=== PATIENT | male | born 1965 | race Caucasian/White ===

== ENCOUNTER 2019-07-12 15:29 | Emergency (ER) | payer MEDICARE, SELFPAY ==
[2019-07-12 15:31] VITALS: BP 144/94; PULSE 77; RESP 18; TEMP 37; O2SAT 97; BMI 32.7
--- NOTE | 2019-07-12 15:44 | CT_ITS ---
STUDY: CT BRAIN WITHOUT CONTRAST REASON FOR EXAM: Male, 54 years old. Trauma RADIATION DOSAGE (If Supplied By Facility): CTDIvol = ( 44.99 ) mGy, DLP = ( 812.98 ) mGycm TECHNIQUE: Transaxial CT imaging of the brain was performed without administration of intravenous contrast material. Individualized dose optimization techniques were used for this CT. COMPARISON: No relevant priors. FINDINGS: Normal soft tissue structures. Normal calvarium. Normal size ventricles and extra-axial spaces for the patient's age. Normal white matter tracts of the cerebral hemispheres. Normal basal ganglia and thalami. Normal brainstem. Normal cerebellum. There is no intracranial hemorrhage. There are no findings of an acute ischemic infarction. Normal visualized paranasal sinuses. CT/Brain/Head without Contrast IMPRESSION: Normal unenhanced CT scan of the brain. Electronically Signed: Evgeny Pickett MD at 16:49 EDT , Service support ,
--- NOTE | 2019-07-12 15:47 | CT_ITS ---
STUDY: CT CERVICAL SPINE WITHOUT CONTRAST REASON FOR EXAM: Male, 54 years old. Trauma RADIATION DOSAGE (If Supplied By Facility): CTDIvol = ( 27.40 ) mGy, DLP = ( 559.34 ) mGycm TECHNIQUE: High resolution transaxial imaging was performed without contrast material. Sagittal and coronal images were reconstructed. Individualized dose optimization techniques were used for this CT. COMPARISON: None FINDINGS: Normal craniovertebral junction. There are degenerative changes of the anterior atlantoaxial articulation. Normal odontoid process. There is straightening of the normal cervical lordosis. There is endplate spondylosis of C5 and C6 C2-3: Normal endplates. Normal disc height and morphology. Normal central canal and intervertebral neuroforamina. C3-4: Normal endplates. Normal disc height and morphology. Normal central canal and intervertebral neuroforamina. C4-5: Normal endplates. Normal disc height and morphology. Normal central canal and intervertebral neuroforamina. C5-6: There is endplate spondylosis. The facets are within normal limits. There is moderately severe bilateral foraminal narrowing. There is mild central canal stenosis caused by posterior spondylosis complex. There is moderately severe disc space narrowing with vacuum phenomenon. C6-7: Normal endplates. Normal disc height and morphology. Normal central canal and intervertebral neuroforamina. C7-T1: Normal endplates. Normal disc height and morphology. Normal central canal and intervertebral neuroforamina. Normal visualized soft tissue structures. CT/Spine Cervical without Contras IMPRESSION: Degenerative changes at the C5-6 level. There is no evidence of fracture or subluxation. Electronically Signed: Evgeny Pickett MD at 16:57 EDT , Service support ,
--- NOTE | 2019-07-12 15:47 | CT_ITS ---
STUDY: CT LUMBAR SPINE WITHOUT CONTRAST REASON FOR EXAM: Male, 54 years old. Trauma RADIATION DOSAGE (If Supplied By Facility): CTDIvol = ( 25.38 ) mGy, DLP = ( 813.89 ) mGycm TECHNIQUE: The patient was scanned in a multi detector CT scanner. High resolution transaxial imaging was performed. Images were obtained from T12 to mid sacrum. Sagittal and coronal images were reconstructed. Individualized dose optimization techniques were used for this CT. COMPARISON: None FINDINGS: Normal lumbar lordosis. There is no substantial scoliosis. There is mild diffuse endplate spondylosis of the visualized thoracolumbar spine. L1-2: There are anterior bridging osteophytes at the T12-L1 level. There is a comminuted fracture of the superior endplate of L1 with mild to moderate decrease in vertical height of this vertebral body noted. The L1-2 disc space is preserved. There is no evidence of foraminal narrowing or canal stenosis. The facets are within normal limits. L2-3: Normal endplates. Normal disc height and morphology. Normal bilateral facet joints. Normal central canal and bilateral lateral recesses. Normal bilateral intervertebral neural foramina. L3-4: Normal endplates. Normal disc height and morphology. Normal bilateral facet joints. Normal central canal and bilateral lateral recesses. Normal bilateral intervertebral neural foramina. L4-5: Normal endplates. Normal disc height and morphology. Normal bilateral facet joints. Normal central canal and bilateral lateral recesses. Normal bilateral intervertebral neural foramina. L5-S1: There is sacralization of L5. Disc spacing is normal. There is no central canal stenosis or foraminal narrowing. The facets are within normal limits. Normal visualized paraspinous soft tissue structures. CT/Spine Lumbar without Contrast IMPRESSION: Comminuted compression fracture of the superior endplate of L1 with mild to moderately severe decrease in vertical height of the L1 body. Anterior bridging osteophyte at the T12-L1 level. Sacralization of L5. If clinically indicated, MRI may be helpful for further evaluation. Electronically Signed: Evgeny Pickett MD at 17:03 EDT , Service support ,
--- NOTE | 2019-07-12 15:47 | CT_ITS ---
STUDY: CT THORACIC SPINE WITHOUT CONTRAST REASON FOR EXAM: Male, 54 years old. Trauma RADIATION DOSAGE (If Supplied By Facility): CTDIvol = ( 27.19 ) mGy, DLP = ( 1156.92 ) mGycm TECHNIQUE: The patient was scanned in a multi detector CT scanner. High resolution imaging was performed. Images were obtained from lower cervical to upper lumbar region. Sagittal and coronal images were reconstructed. Individualized dose optimization techniques were used for this CT. COMPARISON: None. FINDINGS: There are degenerative changes of the cervical spine at the C5-6 level. Normal kyphosis of the thoracic spine. There is no substantial scoliosis. Normal thoracic vertebrae and endplates. Normal disc spaces heights. There is again noted compression fracture of the superior endplate of L1. There is a calcified granuloma of the left lower lobe measuring 1.[address]/Spine Thoracic without Contras IMPRESSION: Compression fracture of the superior endplate of L1 again noted. Cervical degenerative changes at the C5-6 level. Electronically Signed: Evgeny Pickett MD at 17:09 EDT , Service support ,
--- NOTE | 2019-07-12 15:47 | CT_ITS ---
STUDY: CT ABDOMEN AND PELVIS WITH CONTRAST REASON FOR EXAM: Male, 54 years old. Trauma RADIATION DOSAGE (If Supplied By Facility): CTDIvol = ( 20.10 ) mGy, DLP = ( 1303.46 ) mGycm TECHNIQUE: Transaxial images were obtained from the dome of the diaphragm to the symphysis pubis without oral contrast. 100mL IV Isovue 300 was administered. Sagittal and coronal images were reconstructed. Individualized dose optimization techniques were used for this CT. COMPARISON: None. FINDINGS: There is a 12 x 9 mm calcified granuloma of the left lung base. The visualized portions of the heart are within normal limits. There is decreased attenuation of the liver consistent with steatosis. There is a tiny calcified gallstone. There is a benign calcified granuloma of the spleen. Normal pancreas. Normal bilateral adrenal glands. Normal right kidney. Normal left kidney. Normal visualized stomach. Normal small intestine. There is colonic diverticulosis with no associated diverticulitis. The appendix is visualized and appears normal. There are calcified plaques of the abdominal aorta. Normal inferior vena cava. Normal retroperitoneum. Normal urinary bladder. Prostatic calcifications are seen. The seminal vesicles and seminal vesicle angles appear normal. There is a small umbilical hernia containing fat. There is again noted compression deformity of the superior endplate of L1. There are mild degenerative changes of the left and right hips. CT/Abdomen/Pelvis WITH Contrast IMPRESSION: 1. Cholelithiasis. 2. Colonic diverticulosis with no associated diverticulitis. 3. Hepatic steatosis. 4. Small fat-containing umbilical hernia. 5. There is again noted compression deformity of the superior endplate of L1. 6. There is no evidence of hepatic, splenic, or renal laceration or hematoma. No free intra-abdominal or intrapelvic air or fluid is noted. Electronically Signed: Evgeny Pickett MD at 17:36 EDT , Service support ,
--- NOTE | 2019-07-12 15:50 | RAD_ITS ---
STUDY: X-RAY CHEST REASON FOR EXAM: Male, 54 years old. Trauma TECHNIQUE: Single AP portable view of the chest. COMPARISON: None. FINDINGS: The lungs are clear and expanded. There is no demonstrated pleural abnormality. Normal size heart. Normal mediastinum and dion. Normal visualized pulmonary arteries. Normal visualized aortic arch and descending thoracic aorta. Normal visualized thoracic spine. Normal visualized ribs, clavicles, and shoulders. There is no demonstrated abnormality of the visualized soft tissue structures of the upper abdomen. RAD/Chest 1 View (Portable) IMPRESSION: Normal x-ray examination of the chest. Electronically Signed: Evgeny Pickett MD at 16:11 EDT , Service support ,
--- NOTE | 2019-07-12 15:53 | ED.VISSUMM ---
- ER Visit Summary Date of Service: 07/12/19 Chief Complaint: Fell 12 feet from a ladder while cutting down a tree History of Present Illness: The patient is a 54 M past medical history of a prior thoracic spine fracture. No meningioma and hypertension. Patient states he was cutting down a tree today and a branch swung and hit the ladder throwing him from the ladder about 12 feet to the ground landing on his lower back and buttock area. Complaining of pain in his low back. This occurred about an hour ago. He denies any LOC. He denies any chest or abdominal pain. He is on no blood thinners. Physical Examination: Middle-aged male complaining of pain c-collar in place lying in bed. at bedside. Vital signs are stable afebrile. HEENT exam unremarkable atraumatic pupils round reactive light. He does have diffuse tenderness to his C-spine collar is in place. Trachea midline. No lymphadenopathy. Lungs clear to auscultation bilaterally. Chest were nontender. Abdomen soft and nontender. Normal bowel sounds no peritoneal signs. He is moving all 4 extremities. There are neurovascular intact. 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 Equal symmetrical dorsi plantar flexion. Normal sensation lower extremities normal motor strength. No cauda equina or saddle anesthesia. He also has pain on his lumbar spine diffusely. Neurologically he is awake and alert. GCS of 15. Answering questions and following commands. Test Results: CBC normal white count 7. Hemoglobin 15. Chemistries normal normal creatinine and gap. PT/INR normal. Chest x-ray normal read both by myself the radiologist. Normal cardiac silhouette mediastinum. No pneumothorax. CT brain no acute abnormality. CT C-spine no acute abnormality. CT thoracic spine no acute abnormality. All read by the radiologist reviewed by me. CT lumbar spine showed L1 compression fracture. CT abdomen pelvis no acute abnormality other than the L1 compression fracture. Emergency Department Course and Treatment: Patient treated with IV morphine, Zofran and a liter fluid. Screening labs will be obtained along with x-ray of his chest and CAT scans of his brain/abdomen and pelvis/cervical, and thoracic spines. Patient is received several doses of morphine for pain. On repeat exam at 1930 is doing well. He remains neurovascularly intact. Chest is nontender. Abdomen is soft and nontender without peritoneal signs. Both lower extremities neurovascular intact with normal motor strength. Normal range of motion. Normal sensation. No cauda equina. He and I and his discussed all his test results and his L1 compression fracture. He has had a prior thoracic compression fracture and will follow up with orthopedics. Treatment Plan: Percocet for pain 20 no refill. Off work. Follow-up with Dr. Scot Cano of [facility] orthopedics. Disposition: Discharge Impression: Fall 12 foot from a ladder Acute low back pain secondary to L1 compression fracture This note was generated with [employer] dictation software. It may contain incorrect words, spelling, and punctuation that were not noted in review of the chart prior to signing ED Disposition - Plan for ED Patient: Referrals: Mark Singh DO [Primary Care Provider] -
[2019-07-12] MEDS: 0.9% Normal Saline 1,000 ML 1000 ML IV (15:58)
[2019-07-12] MEDS: Ondansetron 4 MG/2 ML Vial IV (15:58)
[2019-07-12] MEDS: morphine 8 MG/ML Syringe IV (15:58)
[2019-07-12 16:05] LABS: Absolute Neutrophil Count 4.8 X10^3/uL (2.0-7.7); Basophil# 0.06 X10^3/uL; Basophil% 0.8 % (0-1); Eosinophil# 0.08 X10^3/uL; Eosinophils% 1.1 % (0-5); Hematocrit 44.8 % (40-54); Lymphocyte % 22.3 % (19-41); Mean Corp Hgb Conc 33.5 g/dL (32-36); Mean Corpuscular Hgb 31.4 pg (27.0-32.0); Mean Corpuscular Volume 93.7 fL (80-94); Mean Platelet Vol. 10.1 fl (6.2-12.0); Monocyte# 0.56 X10^3/uL; Monocyte% 7.8 % (0-10); NRBC Flagged by Analyzer 0 % (0-5); Neutrophil # 4.76 X10^3/uL (2.7-7.7); Neutrophil % 66.3 % (47-70); Platelet Count 193 K/mm3 (150-450); RBC Distribution Width SD 41.9 fl (35.1-43.9); Red Blood Count 4.78 M/mm3 (4.6-6.2); White Blood Count 7.2 K/mm3 (4.4-11.0)
[2019-07-12 16:39] LABS: Anion Gap 8 (5-15); BUN 16 mg/dL (7-18); Calcium,Total 9.2 mg/dL (8.5-10.1); Chloride 109 mmol/L (98-107); Creatinine, Serum 0.94 mg/dL (0.70-1.30); EST Glomerular Filtration Rate 89 mL/min (>60); Est Glom Filt Rate - Afr Amer 107 mL/min (>60); Glucose 105 mg/dL (74-106); Potassium 4.6 mmol/L (3.5-5.1); Sodium Level 142 mmol/L (136-145)
[2019-07-12 16:40] LABS: International Normalized Ratio 1.1; Prothrombin Time (Protime)PT. 13.6 SECONDS (11.7-14.9)
[2019-07-12] MEDS: morphine 8 MG/ML Syringe 6 MG IV (17:09)
[2019-07-12 17:10] VITALS: BP 153/99; PULSE 84; RESP 16; O2SAT 96
[2019-07-12 19:17] VITALS: BP 134/86; O2SAT 95
--- NOTE | 2019-07-12 19:32 | ED.DEP ---
ED Disposition - Plan for ED Patient: Disposition: Home or Assisted Living Instructions: FRACTURE, Vertebral Compression Prescriptions: Oxycodone HCl/Acetaminophen [Percocet 7.5-325 mg Tablet] 1 - 2 tab PO Q6H PRN PRN 7 Days #30 tab PRN Reason: Pain Prescription Printed Referrals: Scot Cano MD [STAFF PHYSICIAN] - As soon as possible Additional Instructions: Motrin and Percocet for pain. Call and follow-up with Dr. Cano on Sunday. Return if weakness and numbness to the legs or bowel or bladder incontinence. These things should not occur.
[2019-07-12] MEDS: Morphine 4 MG/ML Syringe IV (19:56)
[2019-07-12 20:16] VITALS: BP 167/114; PULSE 102; RESP 15
== END 2019-07-12 20:48 | disposition home or self-care (01) ==
PROVIDERS: Emergency Provider Emergency Medicine; Family Provider Student in an Organized Health Care Education/Training Program; PCP Student in an Organized Health Care Education/Training Program
DX: S32.019A Unspecified fracture of first lumbar vertebra, initial encounter for closed fracture (principal); W11.XXXA Fall on and from ladder, initial encounter; Y93.H2 Activity, gardening and landscaping; Y92.9 Unspecified place or not applicable; Y99.9 Unspecified external cause status; I10 Essential (primary) hypertension; Z72.0 Tobacco use
CPT/HCPCS: 70450; 71045; 72125; 72128; 72131; 74177; 80048; 85025; 85610; 96361; 96374; 96375; 96376; 99284; J7030; Q9967; A4216; J2405

== ENCOUNTER 2022-01-05 16:50 | Outpatient (CLI) | payer MEDICARE, SELFPAY | END 2022-01-05 23:59 | disposition home or self-care (01) | LOC: LABSPEC 16:52 | PROVIDERS: PCP Student in an Organized Health Care Education/Training Program; Visit Provider Otolaryngology | DX: J32.8 Other chronic sinusitis (principal) | CPT/HCPCS: 87070; 87205 ==

== ENCOUNTER 2023-11-27 15:44 | Emergency (ER) | payer MEDICARE, SELFPAY ==
[2023-11-27 15:47] VITALS: BP 161/98; PULSE 82; RESP 16; TEMP 36.8; O2SAT 98
[2023-11-27 16:09] VITALS: BMI 36.9
--- NOTE | 2023-11-27 16:15 | RAD_ITS ---
INDICATION: pain -- mid foot EXAMINATION/TECHNIQUE: X-RAY - LEFT XR Foot 3 Views COMPARISON: FINDINGS: SOFT TISSUES: No soft tissue swelling or gas. No radiopaque foreign body. BONES/JOINTS: No acute fracture or subluxation.. Normal alignment. Preservation of the joint space.. No sclerotic or destructive changes observed. RAD/Foot min 3 Views IMPRESSION: No acute bony injury. Electronically Signed: Lane Howard DO at 16:50 EST ,
[2023-11-27] MEDS: Ibuprofen 600 MG Tablet PO (16:18)
--- NOTE | 2023-11-27 16:30 | ED.VIS.LOWEX ---
HPI History of Present Illness Chief Complaint: Lower Extremity Injury Informant: patient and spouse/S.O. Narrative Narrative: Pain across his mid left foot for 2 days. States he was playing with the dog prior to symptoms occurring. There is no specific event causing injury. Pain worse with weightbearing. No fevers. No medications taken. [facility] Medical History Brain tumor (benign) HTN (hypertension) Vertebral fracture Home Medications Bp Med PO DAILY 08/05/15 [History Last Taken Unknown] testosterone 1.62 % (20.25 mg/1.25 gram) transdermal gel packet (AndroGel) 1.25 g transdermal DAILY 08/05/15 [History Last Taken Unknown] lisinopril 20 mg-hydrochlorothiazide 25 mg tablet 1 tab PO DAILY HTN 11/27/23 [History Last Taken Unknown] testosterone 12.5 mg/1.25 gram per pump actuation (1%) transdermal gel 2 pump transdermal DAILY BRAIN TUMOR 11/27/23 [History Last Taken Unknown] Allergy/AdvReac Type Severity Reaction Status Date / Time No Known Allergies Allergy Verified 11/27/23 15:46 Surgical History (Updated 11/27/23 @ 16:06 by Kelli Nash) Previous back surgery Social History Smoking Status: Former smoker ROS ROS ED Constitutional Constitutional ED: Denies chills, fever(s) or sweats Eyes Eyes: Denies change in vision ENT ENT ED: Denies dysphagia or sore throat Cardiovascular Cardiovascular: Denies chest pain, leg edema, palpitations or racing heartbeat Respiratory/Chest Respiratory/Chest: Denies cough, dyspnea or dyspnea on exertion Gastrointestinal Gastrointestinal: Denies abdominal pain, diarrhea, nausea or vomiting Genitourinary Genitourinary ED: Denies dysuria, hematuria or urinary frequency Musculoskeletal Musculoskeletal: Reports extremity pain and other Details: Left foot pain ; Denies back pain or neck pain Integumentary Denies rash or wounds Neurologic Neurologic: Denies headache(s), paresthesias or weakness EXAM Physical Exam Const Vital Signs: 11/27/23 15:47 Temperature 98.2 F Temperature Source Temporal Pulse Rate 82 Respiratory Rate 16 Blood Pressure 161/98 H Blood Pressure Mean 119 Pulse Ox 98 Oxygen Delivery Method Room Air Positive well nourished and well developed General Appearance ED: well developed and NAD HEENT Reports moist mucous membranes normocephalic and atraumatic Eyes PERRL, EOMs intact bilaterally and conjunctivae normal General Eye ED: Yes normal appearance of both eyes Neck no lymphadenopathy and supple General: Negative for tenderness Chest Wall Chest: Negative for tenderness Resp normal respiratory effort and normal air movement Effort and Inspection: symmetric chest movement; Negative for respiratory distress Cardio regular rate, regular rhythm and no murmurs Peripheral Pulses: pulses 2+ throughout GI normal to inspection, nondistended, normoactive bowel sounds and non-tender Palpation: Negative for guarding or rebound tenderness present Back/Spine no CVA tenderness and no thoracic nor lumbar tenderness Extremity Extremity Narrative: Left lower extremity: No knee or ankle tenderness. There is tender across the midfoot with mild swelling. No proximal fifth base tenderness. No great toe tenderness. No erythema. Skin intact. No plantar fascial tenderness. General Extremety ED: Negative for edema or tenderness General Extremity: Negative for edema Neuro oriented x3 and no sensory deficits noted Sensorium / Orientation: awake and alert Skin no rashes or lesions noted and no wounds MDM MDM MDM Narrative Medical decision making narrative: Interventions / MDM: Differential diagnosis: Sprain Diagnosis considered but do not suspect: Fracture however x-ray negative. No clinical gout. My EKG interpretation: N/A Imaging independently reviewed and interpreted by myself: Three-view x-ray left foot: No fracture or dislocation soft tissue swelling dorsal foot. External documents reviewed: N/A Test considered but not ordered:N/A ED course: Patient midfoot pain and swelling. Ibuprofen given. 3 view x-ray ordered. X-ray negative. He had a postop shoe that he placed on. He has crutches at home. Discussed sprain and treatment. RICE therapy. Continue ibuprofen. Outpatient follow-up. All questions were answered. Re-evaluation: stable Disposition discussed with patient/family/significant other: Patient and significant other Case discussed with consulting clinician: N/A This note was generated with [employer] dictation software. It may contain incorrect words, spelling, and punctuation that were not noted in checking the note before signing. Radiography Diagnostic Testing: Clinical Impression(s) from Imaging Studies Foot X-Ray 11/27/23 16:15 IMPRESSION: No acute bony injury. Electronically Signed: Lane Howard DO at 16:50 EST Reading Location ID and State: [facility] / [place] Tel [phone], Service support , Discharge Plan Triage Chief Complaint: Lower Extremity Injury ED Provider: Bo Chavez Dx/Rx/DC Orders Clinical Impression: Sprain of foot, left Instructions: ED Foot Sprain Prescriptions: No Action testosterone [AndroGel] 1.25 GM gel in packet 1.25 g transdermal DAILY Bp Med PO DAILY testosterone 12.5 mg/ 1.25 gram (1 %) gel in metered-dose pump 2 pump transdermal DAILY lisinopril-hydrochlorothiazide 20-25 mg tablet 1 tab PO DAILY Primary Care Provider: Mark Singh Referrals: Mark Singh DO [Primary Care Provider] - 1-2 Weeks Activity Restrictions/Additional Instructions: Foot x-ray negative. Continue to maintain a postop shoe usual home crutches as needed. Continue ibuprofen 600 mg every 6 hours for the next 2 days and as needed. Disposition Disposition: Home, Self Care
== END 2023-11-27 17:25 | disposition home or self-care (01) ==
PROVIDERS: Emergency Provider Emergency Medicine; PCP Student in an Organized Health Care Education/Training Program; Visit Provider Emergency Medicine
DX: S93.602A Unspecified sprain of left foot, initial encounter (principal); X58.XXXA Exposure to other specified factors, initial encounter; I10 Essential (primary) hypertension; Z79.899 Other long term (current) drug therapy; Z87.891 Personal history of nicotine dependence
CPT/HCPCS: 73630; 99282; A4216